=== PATIENT | male | born 1935 | race Two or more races ===

== ENCOUNTER 2016-06-23 08:45 | Outpatient (CLI) | payer MEDICARE | END 2016-06-23 23:59 | disposition home or self-care (01) | LOC: WOU 08:45 | PROVIDERS: ATTEND Podiatrist Foot & Ankle Surgery | DX: S80.822A Blister (nonthermal), left lower leg, initial encounter (principal); X58.XXXA Exposure to other specified factors, initial encounter; Y92.89 Other specified places as the place of occurrence of the external cause; R60.0 Localized edema; L60.3 Nail dystrophy; N40.0 Benign prostatic hyperplasia without lower urinary tract symptoms; I25.10 Atherosclerotic heart disease of native coronary artery without angina pectoris; Z95.1 Presence of aortocoronary bypass graft; I48.91 Unspecified atrial fibrillation; Z79.01 Long term (current) use of anticoagulants | CPT/HCPCS: G0463 ==

== ENCOUNTER 2016-08-11 08:06 | Outpatient (CLI) | payer MEDICARE | END 2016-08-11 23:59 | disposition home or self-care (01) | LOC: WOU 08:06 | PROVIDERS: ATTEND Podiatrist Foot & Ankle Surgery | DX: R60.0 Localized edema (principal); M10.072 Idiopathic gout, left ankle and foot; L85.3 Xerosis cutis; I25.10 Atherosclerotic heart disease of native coronary artery without angina pectoris; Z95.1 Presence of aortocoronary bypass graft; Z87.891 Personal history of nicotine dependence; L60.0 Ingrowing nail | CPT/HCPCS: G0463 ==

== ENCOUNTER 2016-09-08 11:05 | Outpatient (CLI) | payer MEDICARE | END 2016-09-08 23:59 | disposition home or self-care (01) | LOC: WOU 11:05 | PROVIDERS: ATTEND Podiatrist Foot & Ankle Surgery | DX: I87.332 Chronic venous hypertension (idiopathic) with ulcer and inflammation of left lower extremity (principal); L97.829 Non-pressure chronic ulcer of other part of left lower leg with unspecified severity; I87.321 Chronic venous hypertension (idiopathic) with inflammation of right lower extremity; L03.116 Cellulitis of left lower limb; S80.821A Blister (nonthermal), right lower leg, initial encounter; X58.XXXA Exposure to other specified factors, initial encounter; Y92.89 Other specified places as the place of occurrence of the external cause; N40.0 Benign prostatic hyperplasia without lower urinary tract symptoms; E11.9 Type 2 diabetes mellitus without complications; I25.10 Atherosclerotic heart disease of native coronary artery without angina pectoris; I10 Essential (primary) hypertension | CPT/HCPCS: A6452; G0463 ==

== ENCOUNTER 2016-09-09 09:20 | Outpatient (CLI) | payer MEDICARE | END 2016-09-09 23:59 | disposition home or self-care (01) | LOC: WOU 09:20 | PROVIDERS: ATTEND Podiatrist Foot & Ankle Surgery | DX: I83.12 Varicose veins of left lower extremity with inflammation (principal); I83.11 Varicose veins of right lower extremity with inflammation; S80.822D Blister (nonthermal), left lower leg, subsequent encounter; X58.XXXD Exposure to other specified factors, subsequent encounter; L03.116 Cellulitis of left lower limb; Z87.891 Personal history of nicotine dependence; I25.10 Atherosclerotic heart disease of native coronary artery without angina pectoris; E11.9 Type 2 diabetes mellitus without complications; I48.91 Unspecified atrial fibrillation; Z79.01 Long term (current) use of anticoagulants; I10 Essential (primary) hypertension | CPT/HCPCS: A6402; A6452; G0463 ==

== ENCOUNTER 2016-09-11 12:40 | Outpatient (CLI) | payer MEDICARE | END 2016-09-11 23:59 | disposition home or self-care (01) | LOC: WOU 12:40 | PROVIDERS: ATTEND Podiatrist Foot & Ankle Surgery | DX: I83.228 Varicose veins of left lower extremity with both ulcer of other part of lower extremity and inflammation (principal); L97.821 Non-pressure chronic ulcer of other part of left lower leg limited to breakdown of skin; L03.116 Cellulitis of left lower limb; I83.892 Varicose veins of left lower extremity with other complications; Z87.891 Personal history of nicotine dependence; I25.10 Atherosclerotic heart disease of native coronary artery without angina pectoris; I48.91 Unspecified atrial fibrillation; Z79.01 Long term (current) use of anticoagulants; E11.9 Type 2 diabetes mellitus without complications | CPT/HCPCS: A6197; A6402; G0463 ==

== ENCOUNTER 2016-09-16 08:50 | Outpatient (CLI) | payer MEDICARE | END 2016-09-16 23:59 | disposition home or self-care (01) | LOC: WOU 08:50 | PROVIDERS: ATTEND Podiatrist Foot & Ankle Surgery | DX: I70.223 Atherosclerosis of native arteries of extremities with rest pain, bilateral legs (principal); M79.89 Other specified soft tissue disorders | CPT/HCPCS: 93925-TC; 93970-TC ==

== ENCOUNTER 2016-09-18 10:54 | Outpatient (CLI) | payer MEDICARE | END 2016-09-18 23:59 | disposition home or self-care (01) | LOC: WOU 10:54 | PROVIDERS: ATTEND Podiatrist Foot & Ankle Surgery | DX: I83.228 Varicose veins of left lower extremity with both ulcer of other part of lower extremity and inflammation (principal); L97.821 Non-pressure chronic ulcer of other part of left lower leg limited to breakdown of skin; I83.893 Varicose veins of bilateral lower extremities with other complications; I25.10 Atherosclerotic heart disease of native coronary artery without angina pectoris; Z91.19 Patient's noncompliance with other medical treatment and regimen; Z87.891 Personal history of nicotine dependence; I48.91 Unspecified atrial fibrillation; Z79.01 Long term (current) use of anticoagulants; Z79.899 Other long term (current) drug therapy | CPT/HCPCS: 11042; A6197; A6402 ==

== ENCOUNTER 2016-09-25 10:52 | Outpatient (CLI) | payer MEDICARE | END 2016-09-25 23:59 | disposition home health service (06) | LOC: WOU 10:52 | PROVIDERS: ATTEND Podiatrist Foot & Ankle Surgery | DX: I83.12 Varicose veins of left lower extremity with inflammation (principal); I83.893 Varicose veins of bilateral lower extremities with other complications; L03.116 Cellulitis of left lower limb; Z91.19 Patient's noncompliance with other medical treatment and regimen; L60.0 Ingrowing nail; I10 Essential (primary) hypertension; I25.10 Atherosclerotic heart disease of native coronary artery without angina pectoris; Z98.890 Other specified postprocedural states; E11.9 Type 2 diabetes mellitus without complications; Z87.891 Personal history of nicotine dependence; I48.91 Unspecified atrial fibrillation; Z79.01 Long term (current) use of anticoagulants; Z79.899 Other long term (current) drug therapy; S41.112A Laceration without foreign body of left upper arm, initial encounter; X58.XXXA Exposure to other specified factors, initial encounter; Y92.89 Other specified places as the place of occurrence of the external cause | CPT/HCPCS: 11042; A6402; G0463; A6197 ==

== ENCOUNTER 2016-10-02 13:12 | Outpatient (CLI) | payer MEDICARE | END 2016-10-02 23:59 | disposition home health service (06) | LOC: WOU 13:12 | PROVIDERS: ATTEND Surgery | DX: S41.112D Laceration without foreign body of left upper arm, subsequent encounter (principal); X58.XXXD Exposure to other specified factors, subsequent encounter; Z79.891 Long term (current) use of opiate analgesic; I48.91 Unspecified atrial fibrillation; Z79.01 Long term (current) use of anticoagulants; E11.9 Type 2 diabetes mellitus without complications; Z98.890 Other specified postprocedural states; I25.10 Atherosclerotic heart disease of native coronary artery without angina pectoris; I10 Essential (primary) hypertension; L03.116 Cellulitis of left lower limb; I87.323 Chronic venous hypertension (idiopathic) with inflammation of bilateral lower extremity; Z87.891 Personal history of nicotine dependence; Z91.19 Patient's noncompliance with other medical treatment and regimen | CPT/HCPCS: 11042; A6402 ==

== ENCOUNTER 2016-10-16 13:45 | Outpatient (CLI) | payer MEDICARE | END 2016-10-16 23:59 | disposition home health service (06) | LOC: WOU 13:45 | PROVIDERS: ATTEND Surgery | DX: S41.112D Laceration without foreign body of left upper arm, subsequent encounter (principal); W19.XXXD Unspecified fall, subsequent encounter; E11.9 Type 2 diabetes mellitus without complications; I25.10 Atherosclerotic heart disease of native coronary artery without angina pectoris; Z87.891 Personal history of nicotine dependence; Z91.19 Patient's noncompliance with other medical treatment and regimen; I48.91 Unspecified atrial fibrillation; Z79.01 Long term (current) use of anticoagulants; I11.9 Hypertensive heart disease without heart failure; I87.332 Chronic venous hypertension (idiopathic) with ulcer and inflammation of left lower extremity; L97.829 Non-pressure chronic ulcer of other part of left lower leg with unspecified severity; L03.116 Cellulitis of left lower limb | CPT/HCPCS: A6402; G0463 ==

== ENCOUNTER 2016-10-20 10:20 | Outpatient (CLI) | payer MEDICARE | END 2016-10-20 23:59 | disposition home or self-care (01) | LOC: WOU 10:20 | PROVIDERS: ATTEND Podiatrist Foot & Ankle Surgery | DX: I87.332 Chronic venous hypertension (idiopathic) with ulcer and inflammation of left lower extremity (principal); L97.821 Non-pressure chronic ulcer of other part of left lower leg limited to breakdown of skin; I87.321 Chronic venous hypertension (idiopathic) with inflammation of right lower extremity; L29.9 Pruritus, unspecified; S41.112D Laceration without foreign body of left upper arm, subsequent encounter; W19.XXXD Unspecified fall, subsequent encounter; I25.10 Atherosclerotic heart disease of native coronary artery without angina pectoris; I11.9 Hypertensive heart disease without heart failure; Z87.891 Personal history of nicotine dependence; Z91.19 Patient's noncompliance with other medical treatment and regimen; I48.91 Unspecified atrial fibrillation; Z79.01 Long term (current) use of anticoagulants | CPT/HCPCS: A6402; G0463 ==

== ENCOUNTER 2016-10-30 13:08 | Outpatient (CLI) | payer MEDICARE | END 2016-10-30 23:59 | disposition home health service (06) | LOC: WOU 13:08 | PROVIDERS: ATTEND Surgery | DX: S41.112D Laceration without foreign body of left upper arm, subsequent encounter (principal); W19.XXXD Unspecified fall, subsequent encounter; I25.10 Atherosclerotic heart disease of native coronary artery without angina pectoris; Z87.891 Personal history of nicotine dependence; I87.332 Chronic venous hypertension (idiopathic) with ulcer and inflammation of left lower extremity; L97.921 Non-pressure chronic ulcer of unspecified part of left lower leg limited to breakdown of skin; R60.0 Localized edema | CPT/HCPCS: A6402; G0463 ==

== ENCOUNTER 2016-11-13 12:50 | Outpatient (CLI) | payer MEDICARE | END 2016-11-13 23:59 | disposition home health service (06) | LOC: WOU 12:50 | PROVIDERS: ATTEND Surgery | DX: L03.116 Cellulitis of left lower limb (principal); R60.0 Localized edema; I87.323 Chronic venous hypertension (idiopathic) with inflammation of bilateral lower extremity; I25.10 Atherosclerotic heart disease of native coronary artery without angina pectoris; Z95.1 Presence of aortocoronary bypass graft; Z87.891 Personal history of nicotine dependence; Z79.01 Long term (current) use of anticoagulants; Z79.899 Other long term (current) drug therapy; I10 Essential (primary) hypertension; E11.9 Type 2 diabetes mellitus without complications; S41.112D Laceration without foreign body of left upper arm, subsequent encounter; X58.XXXD Exposure to other specified factors, subsequent encounter | CPT/HCPCS: A6402; G0463 ==

== ENCOUNTER 2016-11-17 11:30 | Outpatient (CLI) | payer MEDICARE | END 2016-11-17 23:59 | disposition home health service (06) | LOC: WOU 11:30 | PROVIDERS: ATTEND Podiatrist Foot & Ankle Surgery | DX: L03.031 Cellulitis of right toe (principal); R60.0 Localized edema; I25.10 Atherosclerotic heart disease of native coronary artery without angina pectoris; I10 Essential (primary) hypertension; Z95.1 Presence of aortocoronary bypass graft; Z87.891 Personal history of nicotine dependence; E11.9 Type 2 diabetes mellitus without complications; I87.323 Chronic venous hypertension (idiopathic) with inflammation of bilateral lower extremity | CPT/HCPCS: A6402; G0463 ==

== ENCOUNTER 2016-11-24 11:15 | Outpatient (CLI) | payer MEDICARE | END 2016-11-24 23:59 | disposition home health service (06) | LOC: WOU 11:15 | PROVIDERS: ATTEND Podiatrist Foot & Ankle Surgery | DX: I87.332 Chronic venous hypertension (idiopathic) with ulcer and inflammation of left lower extremity (principal); L97.821 Non-pressure chronic ulcer of other part of left lower leg limited to breakdown of skin; L03.031 Cellulitis of right toe; L03.116 Cellulitis of left lower limb; R60.0 Localized edema; I25.10 Atherosclerotic heart disease of native coronary artery without angina pectoris; Z95.1 Presence of aortocoronary bypass graft; N40.0 Benign prostatic hyperplasia without lower urinary tract symptoms; Z87.891 Personal history of nicotine dependence; Z79.01 Long term (current) use of anticoagulants; Z79.899 Other long term (current) drug therapy; I10 Essential (primary) hypertension | CPT/HCPCS: A6209; A6402; G0463 ==

== ENCOUNTER 2016-12-01 11:15 | Outpatient (CLI) | payer MEDICARE | END 2016-12-01 23:59 | disposition home health service (06) | LOC: WOU 11:15 | PROVIDERS: ATTEND Podiatrist Foot & Ankle Surgery | DX: I87.332 Chronic venous hypertension (idiopathic) with ulcer and inflammation of left lower extremity (principal); L97.821 Non-pressure chronic ulcer of other part of left lower leg limited to breakdown of skin; I87.321 Chronic venous hypertension (idiopathic) with inflammation of right lower extremity; I10 Essential (primary) hypertension; I25.10 Atherosclerotic heart disease of native coronary artery without angina pectoris; E11.9 Type 2 diabetes mellitus without complications; Z79.01 Long term (current) use of anticoagulants; Z79.899 Other long term (current) drug therapy; I48.91 Unspecified atrial fibrillation | CPT/HCPCS: A6209; A6402; G0463 ==

== ENCOUNTER 2016-12-08 11:09 | Outpatient (CLI) | payer MEDICARE | END 2016-12-08 23:59 | disposition home health service (06) | LOC: WOU 11:09 | PROVIDERS: ATTEND Podiatrist Foot & Ankle Surgery | DX: I87.323 Chronic venous hypertension (idiopathic) with inflammation of bilateral lower extremity (principal); R60.0 Localized edema; E11.9 Type 2 diabetes mellitus without complications; I25.10 Atherosclerotic heart disease of native coronary artery without angina pectoris; I10 Essential (primary) hypertension; Z95.1 Presence of aortocoronary bypass graft; I48.91 Unspecified atrial fibrillation; Z79.01 Long term (current) use of anticoagulants | CPT/HCPCS: G0463 ==

== ENCOUNTER 2017-01-12 10:55 | Outpatient (CLI) | payer MEDICARE | END 2017-01-12 23:59 | disposition home health service (06) | LOC: WOU 10:55 | PROVIDERS: ATTEND Podiatrist Foot & Ankle Surgery | DX: I87.332 Chronic venous hypertension (idiopathic) with ulcer and inflammation of left lower extremity (principal); L97.821 Non-pressure chronic ulcer of other part of left lower leg limited to breakdown of skin; R60.0 Localized edema; Z87.891 Personal history of nicotine dependence; R23.8 Other skin changes; I25.10 Atherosclerotic heart disease of native coronary artery without angina pectoris; E11.9 Type 2 diabetes mellitus without complications; I10 Essential (primary) hypertension; Z79.01 Long term (current) use of anticoagulants; Z79.899 Other long term (current) drug therapy | CPT/HCPCS: A6402; A6452; G0463 ==